=== PATIENT | female | born 1945 | race American Indian/Alaskan Native ===

== ENCOUNTER → 2016-08-07 | Outpatient (CLI) | payer MEDICARE ==
[2016-08-07 08:10] LABS: CHCM 32.7; HCT 42.1 % (34.0-46.0); HDW 2.34; HGB 13.5 gm/dL (11.4-16.0); MCH 29.6 pg (25.0-35.0); MCHC 32.1 g/dL (31.0-37.0); MCV 92.2 fL (80.0-100.0); Mean Platelet Volume 8.9; RBC 4.57 m/uL (3.80-5.40); RDW 12.1 % (11.5-15.5); WBC 6.2 k/uL (3.8-10.6)
[2016-08-07 08:14] LABS: Appearance,Urine Clear (Clear); Bacteria,Urine Rare /hpf; Bilirubin,Urine Negative (Negative); Glucose,Urine (UA) Negative (Negative); Ketones,Urine Negative (Negative); Leukocyte Esterase,Urine Trace (Negative); Mucus,Urine Rare /hpf; Nitrite,Urine Negative (Negative); Particle Count 883; Protein,Urine Negative (Negative); RBC,Urine <1 /hpf (0-5); Specific Gravity,Urine 1.008 (1.001-1.035); Squamous Epithelial Cell,Urine 1 /hpf (0-4); UA Billing (MACRO vs. MICRO) MICRO; Urobilinogen,Urine <2.0 mg/dL (<2.0); WBC,Urine 1 /hpf (0-5)
[2016-08-07 08:21] LABS: ALT 28 U/L (9-52); AST 35 U/L (14-36); Alkaline Phosphatase 84 U/L (38-126); Anion Gap 9 mmol/L; Blood Urea Nitrogen 13 mg/dL (7-17); Calcium 9.9 mg/dL (8.4-10.2); Carbon Dioxide 29 mmol/L (22-30); Chloride 104 mmol/L (98-107); Cholesterol 222 mg/dL (<200); Glucose 92 mg/dL (74-99); HDL Cholesterol 92 mg/dL (40-60); Non-African American GFR(MDRD) >60 (>60 ml/min/1.73 sqM); Potassium 4.4 mmol/L (3.5-5.1); Sodium 142 mmol/L (137-145); Total Bilirubin 0.7 mg/dL (0.2-1.3); Triglycerides 156 mg/dL (<150)
== END | disposition home or self-care (01) ==
LOC: LABWHC1 07:42
PROVIDERS: ATTEND Internal Medicine
DX: Z00.00 Encounter for general adult medical examination without abnormal findings (principal); E78.5 Hyperlipidemia, unspecified; E03.9 Hypothyroidism, unspecified
CPT/HCPCS: 36415; 80053; 80061; 81001; 82306; 84439; 84443; 85027

== ENCOUNTER → 2016-08-31 | Outpatient (CLI) | payer MEDICARE ==
--- NOTE | 2016-08-31 15:50 | CT ---
EXAMINATION TYPE: CT brain wo con DATE OF EXAM: 08/31/2016 3:40 PM HISTORY: Headache for [address] DLP: 1082 mGycm. Automated Exposure Control for Dose Reduction was Utilized. TECHNIQUE: CT scan of the head is performed without contrast. COMPARISON: CT brain May 12, 2015. FINDINGS: There is no acute intracranial hemorrhage or midline shift identified. There is diffuse v entricular and sulcal prominence consistent with diffuse age-related cerebral atrophy. There is low- attenuation in the periventricular white matter consistent with chronic small vessel ischemic change. Left-sided basal ganglia calcifications are redemonstrated. The globes are intact and the visualized sinuses are clear. IMPRESSION: No acute intracranial hemorrhage or midline shift. There is mild to moderate diffuse ag e-related cerebral atrophy and chronic small vessel ischemic change redemonstrated. No significant ch jordyn from prior CT.
--- NOTE | 2016-08-31 15:51 | XR ---
EXAMINATION TYPE: XR chest 2V DATE OF EXAM: 08/31/2016 3:43 PM COMPARISON: 04/08/2016 HISTORY: Shortness of breath TECHNIQUE: Frontal and lateral views of the chest are obtained. FINDINGS: Scattered senescent parenchymal changes noted. Hyperinflation compatible with COPD. No evidence for infiltrate. No evidence for atelectasis. Heart size is stable. Mediastinal structures are stable and grossly unremarkable. No evidence for hilar prominence. Degenerative changes dorsal spine. IMPRESSION: 1. No evidence for acute pulmonary disease.
== END | disposition home or self-care (01) ==
LOC: RADCTMAIN 15:12
PROVIDERS: ATTEND Internal Medicine
DX: G31.9 Degenerative disease of nervous system, unspecified (principal); I67.82 Cerebral ischemia; R51 Headache
CPT/HCPCS: 70450; 71020

== ENCOUNTER → 2017-05-13 | Outpatient (CLI) | payer MEDICARE ==
[2017-05-13 14:26] LABS: Blood Urea Nitrogen 17 mg/dL (7-17)
--- NOTE | 2017-05-13 15:19 | CT ---
EXAMINATION TYPE: CT abdomen pelvis w con DATE OF EXAM: 05/13/2017 HISTORY: Left lower quadrant pain. CT DLP: 460mGycm Automated Exposure Control for Dose Reduction was Utilized. CONTRAST: CT scan of the abdomen and pelvis is performed with IV Contrast, patient injected with 100 mL of Omni paque 300. COMPARISON: CT abdomen and pelvis May 12, 2015 FINDINGS: LUNG BASES: No significant abnormality is appreciated. LIVER/GB: Cholecystectomy clips are redemonstrated. Liver is diffusely low dense suggesting fatty inf iltration. Central bile duct prominence near shayy hepatis axial image 24 is unchanged from prior. No suspicious intrahepatic biliary dilatation is seen. PANCREAS: Slight prominence pancreatic head near axial image 28 is stable without suspicious mass or ductal dilatation. SPLEEN: No significant abnormality is seen. ADRENALS: No significant abnormality is seen. KIDNEYS: There are a few simple appearing cysts redemonstrated scattered throughout both kidneys. The re is new obstructing 6 mm calculus in proximal left ureter on axial image 33 and coronal image 41. T here is new mild left-sided hydronephrosis but symmetric cortical medullary uptake and excretion from both kidneys noted. No additional renal calculi are right-sided hydronephrosis is seen. There is sin gle pelvic phlebolith axial image 61 versus tiny 2 mm bladder calculus. Former is favored as this was present prior study. There are additional pelvic phleboliths below this. BOWEL: Normal contrast-filled appendix is seen in the right lower quadrant. There is no suspicious sm all or large bowel dilatation. Oral contrast reaches mid transverse colon level. UTERUS/ADNEXA: No gross abnormality seen. LYMPH NODES: No greater than 1cm abdominal or pelvic lymph nodes are appreciated. OSSEOUS STRUCTURES: No significant abnormality is seen. OTHER: No significant additional abnormality is seen. IMPRESSION: 1. There is new 6 mm calculus proximal left ureter causing mild left-sided hydronephrosis. No delayed excretion is noted. Urology referral advised.
== END | disposition home or self-care (01) ==
LOC: RADCTMAIN 13:33
PROVIDERS: ATTEND Internal Medicine
DX: N13.2 Hydronephrosis with renal and ureteral calculous obstruction (principal)
CPT/HCPCS: 82565; 84520; 74177; 36415; Q9967

== ENCOUNTER → 2017-05-16 | Outpatient (CLI) | payer MEDICARE ==
[2017-05-16 08:16] LABS: ALT 52 U/L (9-52); AST 47 U/L (14-36); Albumin 4.4 g/dL (3.5-5.0); Alkaline Phosphatase 120 U/L (38-126); Anion Gap 10 mmol/L; Blood Urea Nitrogen 17 mg/dL (7-17); Carbon Dioxide 27 mmol/L (22-30); Chloride 105 mmol/L (98-107); Cholesterol 316 mg/dL (<200); Glucose 99 mg/dL (74-99); HDL Cholesterol 82 mg/dL (40-60); LDL Cholesterol,Calculated 206 mg/dL (0-99); Potassium 4.3 mmol/L (3.5-5.1); Sodium 142 mmol/L (137-145); Total Bilirubin 0.5 mg/dL (0.2-1.3); Total Protein 7.7 g/dL (6.3-8.2); Triglycerides 140 mg/dL (<150)
[2017-05-16 08:28] LABS: T4, Free (Free Thyroxine) 1.05 ng/dL (0.78-2.19)
[2017-05-16 08:41] LABS: HCT 44.2 % (34.0-46.0); MCH 28.9 pg (25.0-35.0); MCHC 31.6 g/dL (31.0-37.0); MCV 91.7 fL (80.0-100.0); Mean Platelet Volume 8.7; Platelet Count 264 k/uL (150-450); RBC 4.83 m/uL (3.80-5.40); RDW 13.6 % (11.5-15.5); WBC 6.9 k/uL (3.8-10.6)
[2017-05-16 12:10] LABS: Appearance,Urine Clear (Clear); Bacteria,Urine Occasional /hpf; Bilirubin,Urine Negative (Negative); Blood,Urine Negative (Negative); Color,Urine Yellow; Glucose,Urine (UA) Negative (Negative); Ketones,Urine Negative (Negative); Leukocyte Esterase,Urine Small (Negative); Mucus,Urine Occasional /hpf; Nitrite,Urine Negative (Negative); PH, Urine 6.5 (5.0-8.0); Protein,Urine Trace (Negative); RBC,Urine 2 /hpf (0-5); Specific Gravity,Urine 1.014 (1.001-1.035); Squamous Epithelial Cell,Urine 3 /hpf (0-4); Urobilinogen,Urine <2.0 mg/dL (<2.0); WBC,Urine 23 /hpf (0-5)
== END | disposition home or self-care (01) ==
LOC: LABWHC1 07:14
PROVIDERS: ATTEND Internal Medicine
DX: Z00.00 Encounter for general adult medical examination without abnormal findings (principal); E03.9 Hypothyroidism, unspecified; E55.9 Vitamin D deficiency, unspecified
CPT/HCPCS: 36415; 80053; 80061; 81001; 82306; 84439; 84443; 85027

== ENCOUNTER → 2017-05-18 | Outpatient (CLI) | payer MEDICARE ==
--- NOTE | 2017-05-18 16:32 | XR ---
EXAMINATION TYPE: XR KUB DATE OF EXAM: 05/18/2017 4:15 PM CLINICAL HISTORY: Left-sided ureter calculus. TECHNIQUE: Single supine KUB image of the abdomen is obtained. COMPARISON: CT abdomen and pelvis May 13, 2017 FINDINGS: There is persistent 6 mm calculus in proximal left ureter at superior L3 vertebral body lev el unchanged in size and position from recent CT. No right-sided nephrolithiasis is identified. Right -sided pelvic phleboliths are redemonstrated. Cholecystectomy clips are noted. Lung bases are clear. There is overall nonobstructive bowel gas jackelyn sherman. Visualized osseous structures are intact. IMPRESSION: Stable 6 mm proximal left ureter calculus.
== END | disposition home or self-care (01) ==
LOC: RADXRMAIN 16:02
PROVIDERS: ATTEND Urology
DX: N20.1 Calculus of ureter (principal)
CPT/HCPCS: 74018

== ENCOUNTER → 2017-05-19 | Outpatient (CLI) | payer MEDICARE ==
--- NOTE | 2017-05-19 15:21 | XR ---
EXAMINATION TYPE: XR abdomen 1V DATE OF EXAM: 05/19/2017 2:58 PM CLINICAL HISTORY: Left renal calculus. TECHNIQUE: Single supine KUB image of the abdomen is obtained. COMPARISON: CT abdomen and pelvis 6 days ago. Abdominal x-ray yesterday. FINDINGS: There is persistent 6 mm calculus superior L3 vertebral body level felt stable in size and position. Cholecystectomy clips are redemonstrated. There is overall nonobstructive bowel gas pattern. Right gr eater than left pelvic phleboliths are again seen. Visualized osseous structures are intact. IMPRESSION: Stable 6 mm left proximal ureter calculus unchanged from older studies.
== END | disposition home or self-care (01) ==
LOC: RADXRMAIN 14:43
PROVIDERS: ATTEND Urology
DX: N20.1 Calculus of ureter (principal); Z98.890 Other specified postprocedural states
CPT/HCPCS: 74018

== ENCOUNTER → 2017-05-19 | Outpatient (CLI) | payer MEDICARE ==
[2017-05-19 15:52] LABS: Basophils # (A) 0.1 k/uL (0-0.2); Basophils % (A) 1 %; Eosinophils # (A) 0.4 k/uL (0-0.7); Eosinophils % (A) 6 %; HCT 42.7 % (34.0-46.0); HGB 13.1 gm/dL (11.4-16.0); Lymphocytes # (A) 3.3 k/uL (1.0-4.8); Lymphocytes % (A) 48 %; MCH 28.2 pg (25.0-35.0); MCHC 30.7 g/dL (31.0-37.0); MCV 91.9 fL (80.0-100.0); Mean Platelet Volume 8.4; Monocytes # (A) 0.4 k/uL (0-1.0); Monocytes % (A) 6 %; Neutrophils # (A) 2.6 k/uL (1.3-7.7); Neutrophils % (A) 38 %; Platelet Count 237 k/uL (150-450); RBC 4.64 m/uL (3.80-5.40); RDW 13.3 % (11.5-15.5); WBC 6.9 k/uL (3.8-10.6)
[2017-05-19 16:02] LABS: Anion Gap 10 mmol/L; Blood Urea Nitrogen 18 mg/dL (7-17); Carbon Dioxide 28 mmol/L (22-30); Chloride 104 mmol/L (98-107); Potassium 4.1 mmol/L (3.5-5.1); Sodium 142 mmol/L (137-145)
== END | disposition home or self-care (01) ==
LOC: LABPAT 15:23
PROVIDERS: ATTEND Urology
DX: N20.1 Calculus of ureter (principal)
CPT/HCPCS: 36415; 80051; 82565; 84520; 85025

== ENCOUNTER → 2017-05-20 | Outpatient (CLI) | payer MEDICARE ==
[2017-05-20 11:05] LABS: Appearance,Urine Clear (Clear); Bilirubin,Urine Negative (Negative); Blood,Urine Negative (Negative); Color,Urine Light Yellow; Glucose,Urine (UA) Negative (Negative); Ketones,Urine Negative (Negative); Leukocyte Esterase,Urine Negative (Negative); Nitrite,Urine Negative (Negative); PH, Urine 6.5 (5.0-8.0); Protein,Urine Negative (Negative); Specific Gravity,Urine 1.015 (1.001-1.035); Urobilinogen,Urine <2.0 mg/dL (<2.0)
== END | disposition home or self-care (01) ==
LOC: LABWHC1 10:19
PROVIDERS: ATTEND Urology
DX: N20.1 Calculus of ureter (principal)
CPT/HCPCS: 81003

== ENCOUNTER 2017-05-23 06:17 | Day surgery (SDC) | payer MEDICARE ==
[2017-05-19 14:54] VITALS: BMI 23.8
[~2017-05-23 06:17] MED LIST: DEXAMETHASONE SOD PHOSPHATE 10 MG/ML 1 ML VIAL IV ONE; HYDROmorphone 0.5 MG/0.5 ML SYRINGE IVP PRN; LACTATED RINGERS 1,000 ML IV SCH; ONDANSETRON 4 MG/2 ML VIAL IVP ONE; Pre Op ABX Message 1 EACH MISC MISCELLANE ONE
[2017-05-23 06:49] VITALS: TEMP 97.8
[2017-05-23] MEDS ORDERED: LIDOCAINE 1% 20 ML VIAL (10MG/ML) FOR IV START INTRADERMA ONE (06:57)
[2017-05-23] MEDS ORDERED: MIDAZOLAM 2 MG/2 ML VIAL ONE (07:24)
[2017-05-23] MEDS ORDERED: fentaNYL (PF) 50 MCG/ML 2 ML AMP ONE (07:24)
[2017-05-23] MEDS ORDERED: FUROSEMIDE 10 MG/ML 2 ML VIAL ONE (07:24)
[2017-05-23] MEDS ORDERED: KETAMINE 10 MG/ML 20 ML VIAL ONE (07:24)
[2017-05-23] MEDS ORDERED: PROPOFOL 10 MG/ML 20 ML VIAL IV ONE (07:24)
--- NOTE | 2017-05-23 07:26 | XR ---
EXAMINATION TYPE: XR KUB DATE OF EXAM: 05/23/2017 CLINICAL DATA: 72-year-old female left-sided kidney stone, prelithotripsy, [facility] COMPARISON: 05/18/2017 FINDINGS: Nonobstructive bowel gas pattern. Scattered [id number] stool. Cholecystectomy clips. 6 cm calci fication projecting at the left mid abdomen. Pelvic phleboliths redemonstrated. IMPRESSION: 6 mm calcification in the left midabdomen possibly within the left UPJ/upper left ureter, not signifi cantly changed from prior.
--- NOTE | 2017-05-23 08:00 | P.OP ---
Date of Procedure: 05/23/17 Preoperative Diagnosis: Left ureteral stone Postoperative Diagnosis: Same Procedure(s) Performed: Extracorporeal shockwave lithotripsy, 2500 shocks at energy level IV Anesthesia: MAC Surgeon: Yony Camp Pathology: none sent Condition: stable Disposition: PACU Indications for Procedure: The patient is a 72-year-old female with a 6 mm proximal ureteral stone with intermittent colic who comes for shockwave lithotripsy Description of Procedure: The patient is brought to the lithotripsy suite. She's placed on the lithotripsy table in a supine position. The stone was seen in 2 views of fluoroscopy. She's given IV sedation. 2500 shocks at energy level IVR administered. The stone fractures nicely. She was given 10 mg Lasix. The patient's awake and returned recovery in good condition. She'll be discharged home upon recovery and found the office in one week with a KUB.
[2017-05-23 08:11] VITALS: RESP 16
[2017-05-23] MEDS ORDERED: ONDANSETRON 4 MG/2 ML VIAL IVP ONE ×3 (08:35→08:40)
[2017-05-23 09:59] VITALS: PULSE 69
[2017-05-23 10:50] VITALS: BP 135/80
== END 2017-05-23 10:34 | disposition home or self-care (01) ==
LOC: ORWHC2ENDO 06:17
PROVIDERS: ATTEND Urology
DX: N20.1 Calculus of ureter (principal); K21.9 Gastro-esophageal reflux disease without esophagitis; E03.9 Hypothyroidism, unspecified; Z79.899 Other long term (current) drug therapy
CPT/HCPCS: 74018; 50590; J2250; J1100; J1940; J2405; J3010; J2704

== ENCOUNTER → 2017-05-27 | Outpatient (CLI) | payer MEDICARE ==
--- NOTE | 2017-05-27 09:20 | XR ---
Abdomen HISTORY: Left ureteral calculus Frontal view of the abdomen submitted and correlated to prior exam May 23, 2017 Surgical clips are present in the right upper quadrant. No pneumoperitoneum or bowel obstruction. Chad cifications in the pelvis are stable. Overlying bowel gas may obscure detail. Previously identified p araspinal calcification is no longer evident. IMPRESSION: Left ureteral calculus is not seen on the current exam.
== END | disposition home or self-care (01) ==
LOC: RADXRMAIN 08:36
PROVIDERS: ATTEND Urology
DX: N20.1 Calculus of ureter (principal)
CPT/HCPCS: 74018

== ENCOUNTER → 2018-03-07 | Outpatient (CLI) | payer MEDICARE ==
[2018-03-07 15:42] VITALS: BP 130/73; PULSE 67; TEMP 97.8; BMI 25.7
--- NOTE | 2018-03-07 16:48 | P.HPOB ---
History of Present Illness H&P Date: 03/07/18 Chief Complaint: The patient is here for her routine gynecologic exam and mammogram. This is a 72-year-old with an LMP of 1994. The patient is without gynecologic complaints and denies any postmenopausal bleeding. Review of Systems She is getting about 16 pounds over the last 2 years. She denies respiratory, cardiac and G.I. problems. She denies maltreatment or problems with falling. : she denies any significant problems with urinary leakage. Past Medical History Past Medical History: Thyroid Disorder (hypothyroid) Additional Past Medical History / Comment(s): VERTIGO. PAST [employer] HISTORY: She has no history of STDs. History of Any Multi-Drug Resistant Organisms: None Reported Past Surgical History: Cholecystectomy, Orthopedic Surgery Additional Past Surgical History / Comment(s): right knee arthroscopy. Colonoscopy 2010. Past Anesthesia/Blood Transfusion Reactions: No Reported Reaction Past Psychological History: No Psychological Hx Reported Smoking Status: Never smoker Past Alcohol Use History: Daily (One glass of wine per day) Past Drug Use History: None Reported Additional History: She has been since 1966. She works part-time in her 's medical office. - Past Family History Father Additional Family Medical History / Comment(s): Alzheimer's disease Medications and Allergies Home Medications Medication Instructions Recorded Confirmed Type Levothyroxine Sodium [Synthroid] 50 mcg PO DAILY 05/12/15 03/07/18 History DULoxetine HCL [Cymbalta] 60 mg PO DAILY 04/08/16 03/07/18 History Esomeprazole Magnesium [NexIUM] 20 mg PO DAILY 05/19/17 03/07/18 History Atenolol [Tenormin] mg PO DAILY 03/07/18 History Allergies Allergy/AdvReac Type Severity Reaction Status Date / Time No Known Allergies Allergy Verified 03/07/18 15:32 Exam Vital Signs Temp Pulse BP 03/07/18 15:32 97.8 F 67 130/73 Intake and Output 03/07/18 03/07/18 03/07/18 06:59 14:59 22:59 Other: Weight 59.874 kg Height 5'1", weight 132 pounds, BMI 25.8. This is a well-developed well-nourished female who is alert and oriented times 3 in no acute distress. HEENT: Within normal limits. NECK: Supple without mass or thyromegaly. CHEST AND LUNGS: Clear to auscultation. HEART: Regular rate and rhythm. BREASTS: Are without mass or discharge. AXILLARY EXAM: Negative for adenopathy. BACK: Negative for CVA tenderness. ABDOMEN: Soft, nontender, without palpable masses. PELVIC EXAM: Normal external genitalia with mild to moderate atrophy. Cervix and vagina appear normal with mild to moderate atrophy. There is no unusual discharge. There is no evidence of prolapse. The uterus is midposition, nongravid size and nontender. There are no palpable adnexal masses or tenderness. RECTAL EXAM: rectovaginal exam is negative for mass or tenderness and is negative for occult blood. EXTREMITIES: Nontender. IMPRESSION: 1. 72-year-old menopausal female with normal gynecologic exam. 2. History of osteoporosis. PLAN: 1. Pap smear was performed. 2. Self breast awareness was discussed with the patient. 3. Screening mammogram will be done today. 4. Osteoporosis management was discussed. I have recommended taking medication for osteoporosis since she is at an increased risk for bone fracture. Information on Fosamax and osteoporosis or given to the patient. At this time she is not interested in taking medication, but she will call if she changes her mind. I have also stressed the importance of adequate calcium, vitamin D and regular exercise. 5. She did get her flu shot this fall. 6. She will return in one year.
--- NOTE | 2018-03-09 11:25 | MM ---
Reason for exam: screening (asymptomatic). Last mammogram was performed 2 years and 3 months ago. History: Patient is postmenopausal. Physical Findings: A clinical breast exam by your physician is recommended on an annual basis and results should be correlated with mammographic findings. MG 3D Screening Mammo W/Cad Bilateral CC and MLO view(s) were taken. Prior study comparison: November 27, 2015, bilateral MG 3d screening mammo w/cad. June 10, 2014, bilateral MG screening mammo w CAD. There are scattered fibroglandular densities. There is no discrete abnormality. No significant changes when compared with prior studies. ASSESSMENT: Negative, BI-RAD 1 RECOMMENDATION: Routine screening mammogram of both breasts in 1 year.
== END | disposition home or self-care (01) ==
LOC: WWCWWP 15:01
PROVIDERS: ATTEND Obstetrics & Gynecology
DX: Z12.31 Encounter for screening mammogram for malignant neoplasm of breast (principal)
CPT/HCPCS: 77063; 77067